=== PATIENT | male | born 1960 | race Caucasian/White ===

== ENCOUNTER 2023-08-16 15:15 | Emergency (ER) | payer BC ==
[2023-08-16] MEDS ORDERED: Ketorolac Tromethamine 30 MG/ML VIAL ONE (17:42)
[2023-08-16] MEDS ORDERED: Dexamethasone 10 MG/ML VIAL ONE (17:42)
[2023-08-16] MEDS ORDERED: Acetaminophen 325 MG TAB ONE (18:53)
== END 2023-08-16 19:40 | disposition home or self-care (01) ==
LOC: CSHERS 15:15
DX: M16.0 Bilateral primary osteoarthritis of hip (principal); E11.9 Type 2 diabetes mellitus without complications; I10 Essential (primary) hypertension
CPT/HCPCS: 96372; 99283; J1100; J1885